=== PATIENT | female | born 1985 | race African-American/Black ===

== ENCOUNTER 2017-04-04 19:21 | Emergency (ER) | payer MEDICAID ==
[2017-04-04] MEDS ORDERED: LORAZEPAM 1 MG TABLET PO ONE (22:00)
--- NOTE | 2017-04-04 22:22 | ER Document Report ---
ED General - General Chief Complaint: Anxiety Stated Complaint: IRREGULAR HEART BEAT Time Seen by Provider: 04/04/17 21:59 Notes: Patient is a 31-year-old female with a past medical history of anxiety and gastroesophageal reflux disease who presents with sensation of palpitations and anxiety. Patient states this feels very similar to when she has had panic attacks in the past. Nothing improves or worsens her symptoms. She states that it started after she ate a large meal quickly and began to have reflux which is often a trigger for her anxiety attacks. She denies any chest pain, shortness of breath, pleuritic pain, history of DVT or pulmonary embolus, or use of estrogen. She denies any chest discomfort whatsoever at time of assessment. She states her main concern is that she is having an ongoing panic attack. She has not seen her primary care doctor regarding today's concerns. TRAVEL OUTSIDE OF THE [place] IN LAST 30 DAYS: No - Related Data Allergies/Adverse Reactions: No Known Allergies Allergy (Verified 05/19/16 13:35) Past Medical History - General Information source: Patient - Social History Smoking Status: Never Smoker Frequency of alcohol use: Rare Drug Abuse: None Lives with: Spouse/Significant other Family History: Reviewed & Not Pertinent Patient has suicidal ideation: No Patient has homicidal ideation: No Renal/ Medical History: Denies: Hx Peritoneal Dialysis Psychiatric Medical History: Reports: Hx Anxiety, Hx Depression - Immunizations Hx Diphtheria, Pertussis, Tetanus Vaccination: Yes Review of Systems - Review of Systems Notes: Constitutional: Negative for fever. HENT: Negative for sore throat. Eyes: Negative for visual changes. Cardiovascular: Negative for chest pain. Positive for palpitations Respiratory: Negative for shortness of breath. Gastrointestinal: Negative for abdominal pain, vomiting or diarrhea. Genitourinary: Negative for dysuria. Musculoskeletal: Negative for back pain. Skin: Negative for rash. Neurological: Negative for headaches, weakness or numbness. 10 point ROS negative except as marked above and in HPI. Physical Exam - Vital signs Vitals: Temp Pulse Resp BP Pulse Ox 98.4 F 126 H 16 147/95 H 99 04/04/17 20:06 04/04/17 20:06 04/04/17 20:06 04/04/17 20:06 04/04/17 20:06 Interpretation: Hypertensive, Tachycardic Notes: PHYSICAL EXAMINATION: GENERAL: Well-appearing, well-nourished and in no acute distress. HEAD: Atraumatic, normocephalic. EYES: Pupils equal round and reactive to light, extraocular movements intact, sclera anicteric, conjunctiva are normal. ENT: nares patent, oropharynx clear without exudates. Moist mucous membranes. NECK: Normal range of motion, supple without lymphadenopathy LUNGS: Breath sounds clear to auscultation bilaterally and equal. No wheezes rales or rhonchi. HEART: Regular tachycardia without murmurs ABDOMEN: Soft, nontender, normoactive bowel sounds. No guarding, no rebound. No masses appreciated. EXTREMITIES: Normal range of motion, no pitting or edema. No cyanosis. NEUROLOGICAL: No focal neurological deficits. Moves all extremities spontaneously and on command. PSYCH: Anxious. SKIN: Warm, Dry, normal turgor, no rashes or lesions noted. Course - Re-evaluation Re-evalutation: 04/04/17 22:21 Patient presents with history most consistent with an acute panic attack. The patient admits that these are symptoms identical to prior occasions of panic. There was a clear trigger for tonight's episode. Symptoms did resolve after receiving medical therapy here in the emergency department. Vitals otherwise within normal limits with the exception of initial tachycardia which has resolved. I do not suspect an acute pulmonary embolus, ACS, pneumothorax, or any other acute left threatening pathology based on history and exam. I do not believe any labs or imaging are indicated at this time. At this time will discharge with return precautions and follow-up recommendations. Verbal discharge instructions given a the bedside and opportunity for questions given. Medication warnings reviewed. Patient is in agreement with this plan and has verbalized understanding of return precautions and the need for primary care follow-up in the next 24-72 hours. - Vital Signs Vital signs: Temp Pulse Resp BP Pulse Ox 98.9 F 105 H 16 141/90 H 100 04/05/17 00:15 04/05/17 00:15 04/05/17 00:15 04/05/17 00:15 04/05/17 00:15 - EKG Interpretation by Me Additional EKG results interpreted by me: 04/05/17 03:54 Sinus tachycardia. Rate 126. No ST elevations or depressions. QTC is 412. Discharge - Discharge Clinical Impression: Anxiety, Sinus tachycardia Condition: Good Disposition: HOME, SELF-CARE Instructions: Anxiety ([facility]) Additional Instructions: You were seen today for anxiety and a fast heart rate. Please return if you develop recurrence of your symptoms, thoughts of wanting to harm yourself, or any other symptoms that are concerning to you. Follow-up with your primary doctor or mental health provider regarding today's ED visit.
[2017-04-04] MEDS ORDERED: MAG HYDROX/AL HYDROX/SIMETH SUSP 30 ML UDCUP PO ONE (23:57)
[2017-04-04] MEDS ORDERED: METOCLOPRAMIDE HCL ORAL SOLN 10 MG/10 ML UDCUP PO ONE (23:57)
[2017-04-04] MEDS ORDERED: LIDOCAINE 2% VISCOUS SOLN 20 ML UDCUP PO ONE (23:57)
[2017-04-05 00:16] VITALS: BP 141/90
--- NOTE | 2017-04-05 02:08 | EKG REPORT ---
SEVERITY:- BORDERLINE ECG - SINUS TACHYCARDIA PROBABLE LEFT ATRIAL ABNORMALITY : Confirmed by: Heather Salcido MD 05-Apr-2017 02:08:15
== END 2017-04-05 00:15 | disposition home or self-care (01) ==
LOC: ER 19:21
DX: F41.9 Anxiety disorder, unspecified (principal); R00.0 Tachycardia, unspecified; K21.9 Gastro-esophageal reflux disease without esophagitis
CPT/HCPCS: 93005; 99283; 93010; J3490 ×3

== ENCOUNTER 2017-08-08 21:40 | Emergency (ER) | payer MEDICAID, OTHER ==
--- NOTE | 2017-08-08 22:13 | EKG REPORT ---
SEVERITY:- BORDERLINE ECG - SINUS TACHYCARDIA PROBABLE LEFT ATRIAL ABNORMALITY BORDERLINE T ABNORMALITIES, ANT-LAT LEADS : Confirmed by: Yamini Marie 08-Aug-2017 22:12:48
[2017-08-08] MEDS ORDERED: LORAZEPAM 0.5 MG TABLET PO ONE (23:25)
--- NOTE | 2017-08-08 23:48 | ER Document Report ---
HPI - HPI Pain Level: Denies Notes: Patient is a 31-year-old female with a chronic history of recurrent anxiety and panic attacks who presents to the ED complaining of another 1 of her typical anxiety attacks. Patient states that she has been under a lot of stress and has been thinking about her grandmother who is in poor health as well as having decreased p.o. intake causing her acid reflux to flareup. Patient states that when her acid reflux flares up she starts developing anxiety. Patient does not take anything for her anxiety at this time. Patient states that she has been on multiple SSRIs in the past with minimal relief. Patient was last evaluated here in March for the same issue. Patient states that when her anxiety increases she does become nauseated as well. Patient states that otherwise she has been healthy without any recent illness. She is urinating normally and having normal bowel movements. She denies any drug allergies. Denies any SI/ HI. Patient states that she is ambulatory without any worsening symptoms or any development of chest pain. Denies any headache, fever, neck pain, changes in vision/speech/mentation/hearing, URI, sore throat, chest pain, palpitations, syncope, cough, shortness of breath, wheeze, dyspnea, vomiting/diarrhea, urinary retention, dysuria, hematuria, loss of control of bowel or bladder, numbness/tingling, muscle paralysis/weakness, or rash. - ROS Systems Reviewed and Negative: Yes All other systems reviewed and negative - REPRODUCTIVE Reproductive: DENIES: : Past Medical History - Social History Smoking Status: Never Smoker Family History: Reviewed & Not Pertinent Renal/ Medical History: Denies: Hx Peritoneal Dialysis Psychiatric Medical History: Reports: Hx Anxiety, Hx Depression - Immunizations Hx Diphtheria, Pertussis, Tetanus Vaccination: Yes Vertical Provider Document - CONSTITUTIONAL Agree With Documented VS: Yes Notes: PHYSICAL EXAMINATION: GENERAL: Well-appearing, well-nourished and in no acute distress. A&Ox4. Answers questions appropriately. Speaking in full sentences w/o difficulty. HEAD: Atraumatic, normocephalic. EYES: Pupils equal round and reactive to light, extraocular movements intact, sclera anicteric, conjunctiva are normal. ENT: Nares patent and without discharge. oropharynx clear without exudates. No tonsilar hypertrophy or erythema. Moist mucous membranes. NECK: Normal range of motion, supple without lymphadenopathy LUNGS: Breath sounds clear to auscultation bilaterally and equal. No wheezes rales or rhonchi. HEART: Regular rate and rhythm without murmurs, rubs, gallops. ABDOMEN: Soft, nontender, nondistended abdomen. No guarding, no rebound. No masses appreciated. Normal bowel sounds present. No CVA tenderness bilaterally. Musculoskeletal: FROM to passive/active. Strength 5+/5. Lesley neg. No calf erythema/swelling. Extremities: No cyanosis, clubbing, or edema b/l. Peripheral pulses 2+. Capillary refill less than 3 seconds. NEUROLOGICAL: MMSE intact. Cranial nerves grossly intact. Normal speech, normal gait. Normal sensory, motor exams PSYCH: a little anxious during exam SKIN: Warm, Dry, normal turgor, no rashes or lesions noted. - INFECTION CONTROL TRAVEL OUTSIDE OF THE [place] IN LAST 30 DAYS: No - RESPIRATORY O2 Sat by Pulse Oximetry: 100 Course - Re-evaluation Re-evalutation: 08/08/17 23:45 Patient is an afebrile, well-hydrated, 31-year-old female who presents to the ED with anxiety, suspect 1 of her typical panic attacks based on H&P today. Vitals are stable. PE is otherwise unremarkable for any focal neurological deficits. Upon review of patient's history, symptoms and presentation are consistent. Patient has a known trigger which started her anxiety (GERD/ emotions). As soon as a reviewed her EKG findings with her patient states that she felt much better and could feel her anxiety calming down. Her pulse on my exam was 98. No other labs or imaging warranted at this time based on H&P. Low suspicion for any ACS, PE, pneumothorax, pericarditis, dissection, respiratory compromise, severe dehydration, sepsis, meningitis, or other systemic emergent condition at this time. Patient is aware that her condition can change from initial presentation and she needs to monitor symptoms closely and seek medical attention for any acute changes. Patient was also given 0.5 mg of Ativan which helped as well. Patient received Ativan at her last visit which did well for her. I will not be sending her home with any benzodiazepines. I will send her home with a few tablets of hydroxyzine which she may use as needed. Recommend conservative measures otherwise for symptoms. Recheck with your PCM in 3-5 days. Consider consult with a psychologist/ psychiatrist. Return to the ED with any worsening/concerning symptoms otherwise as reviewed discharge. Patient is in agreement. - Vital Signs Vital signs: Temp Pulse Resp BP Pulse Ox 97.6 F 114 H 20 145/76 H 100 08/08/17 22:06 08/08/17 22:06 08/08/17 22:06 08/08/17 22:06 08/08/17 22:06 Discharge - Discharge Clinical Impression: Anxiety Condition: Stable Disposition: HOME, SELF-CARE Instructions: Anxiety ([facility]) Additional Instructions: Maintain adequate fluid intake Maintain a healthy diet Exercise as able Take medications as directed/needed Consider d-stressing activities such as yoga and meditation Recheck with your PCM in 3-5 days Consider consult with a psychologist/psychiatrist for further evaluation and management Return to the ED with any worsening symptoms and/or development of fever, headache, chest pain, palpitations, syncope, shortness of breath, trouble breathing, abdominal pain, n/v/d, blood in stool/urine, loss of control of bowel /bladder, urinary retention, muscle weakness/paralysis, numbness/tingling, suicidal/homicidal thoughts/ideations, or other worsening symptoms that are concerning to you. Prescriptions: Hydroxyzine HCl 50 mg PO TID PRN #15 tablet PRN Reason: Forms: Elevated Blood Pressure Referrals: [facility] [Provider Group] - Follow up as needed
[2017-08-09 00:45] VITALS: BP 132/91
== END 2017-08-09 00:36 | disposition home or self-care (01) ==
LOC: ER 21:40
DX: F41.9 Anxiety disorder, unspecified (principal); F41.0 Panic disorder [episodic paroxysmal anxiety]; R11.0 Nausea
CPT/HCPCS: 93005; 93010; 99283

== ENCOUNTER 2017-10-23 11:16 | Emergency (ER) | payer MEDICAID, OTHER ==
[2017-10-23] MEDS ORDERED: NORMAL SALINE 1000 ML 1,000 ML IV ONE (11:37)
[2017-10-23] MEDS ORDERED: DIPHENHYDRAMINE HCL 50 MG/ML VIAL IV ONE (11:37)
[2017-10-23] MEDS ORDERED: METOCLOPRAMIDE HCL INJ/PF 10 MG/2 ML SDV IV ONE (11:37)
--- NOTE | 2017-10-23 11:38 | ER Document Report ---
ED Medical Screen (RME) - General Chief Complaint: Headache Stated Complaint: HEADACHE, NAUSEA, WEAKNESS Time Seen by Provider: 10/23/17 11:33 Notes: RME DISCLOSURE I have seen this patient as part of a Rapid Medical Evaluation and, if applicable, placed any initially appropriate orders. The patient will be seen and fully evaluated, including a full history and physical exam, by a provider ( in Main ED or Fast Track) when a room becomes available. 32-year-old female here with complaints of generalized weakness nausea headache and feeling stressed out over the past few days. She does not know what could be causing the symptoms. She lost her grandmother 2 weeks ago. She does also endorse a history of electrolyte imbalance in the past requiring replacement. Denies any pain. TRAVEL OUTSIDE OF THE [place] IN LAST 30 DAYS: No - Related Data Allergies/Adverse Reactions: No Known Allergies Allergy (Verified 05/19/16 13:35) Past Medical History - Social History Chew tobacco use (# tins/day): No Frequency of alcohol use: Rare Drug Abuse: None Renal/ Medical History: Denies: Hx Peritoneal Dialysis Psychiatric Medical History: Reports: Hx Anxiety, Hx Depression - Immunizations Hx Diphtheria, Pertussis, Tetanus Vaccination: Yes Physical Exam - Vital signs Vitals: Temp Pulse Resp BP Pulse Ox 98.5 F 103 H 15 167/94 H 100 10/23/17 11:10/23/17 11:10/23/17 11:10/23/17 11:10/23/17 11:26 Course - Vital Signs Vital signs: Temp Pulse Resp BP Pulse Ox 98.5 F 103 H 15 167/94 H 100 10/23/17 11:10/23/17 11:10/23/17 11:10/23/17 11:10/23/17 11:26
[2017-10-23 12:18] LABS: ABSOLUTE EOSINOPHILS # (AUTO) 0.2 10^3/uL (0.0-0.6); ABSOLUTE LYMPHOCYTES (AUTO) 2.5 10^3/uL (0.5-4.7); ABSOLUTE MONOCYTES (AUTO) 0.7 10^3/uL (0.1-1.4); ABSOLUTE NEUT (AUTO) 4.6 10^3/uL (1.7-8.2); BASOPHILS % (AUTO) 0.4 % (0-2); EOSINOPHILS % (AUTO) 2.1 % (0-6); HEMATOCRIT 38.3 % (36.0-47.0); HEMOGLOBIN 12.9 g/dL (12.0-15.5); LYMPHOCYTES % (AUTO) 31.2 % (13-45); MEAN CORPUSCULAR HEMOGLOBIN 28.1 pg (27.0-33.4); MEAN CORPUSCULAR HGB CONC 33.8 g/dL (32.0-36.0); MEAN CORPUSCULAR VOLUME 83 fl (80-97); MONOCYTES % (AUTO) 9.2 % (3-13); PLATELET COUNT 339 10^3/uL (150-450); RED CELL DISTRIBUTION WIDTH 14.5 % (11.5-14.0); SEGMENTED NEUTROPHILS % (AUTO) 57.1 % (42-78); TOTAL CELLS COUNTED % (AUTO) 100 %
--- NOTE | 2017-10-23 12:18 | ER Document Report ---
ED General - General Chief Complaint: Headache Stated Complaint: HEADACHE, NAUSEA, WEAKNESS Time Seen by Provider: 10/23/17 11:33 Mode of Arrival: Ambulatory Information source: Patient TRAVEL OUTSIDE OF THE [place] IN LAST 30 DAYS: No - HPI Notes: 32-year-old female presents today with complaints of weakness, headache, anxious and was concerned about being . States she is worried about her left wrist is because she has not been eating as much. Symptoms been going on for the last 3 days. Patient reports she is under a lot of stress after recently losing a left one 2 weeks ago. Patient states on the way here she did start her menstrual cycle Patient does not take any medications for anxiety, does not see anyone to manage her anxiety. Eating and drinking has been decreased but she is still doing so. Denies homicidal suicidal ideation. Denies fevers, chills, chest pain,palpitations, shortness of breath, dyspnea, nausea, vomiting, diarrhea, abdominal pain, hematuria,blurred vision, double vision, loss of vision, speech changes, LH, dizziness, syncope, headaches, wheezing, ST, URI, neck pain, weakness, bowel or bladder dysfunction, saddle anesthesia, numbness or tingling in bilateral upper or lower extremities equally , muscle paralysis, weakness in bilateral upper or lower extremities equally or rash. Denies IV drug use. - Related Data Allergies/Adverse Reactions: No Known Allergies Allergy (Verified 05/19/16 13:35) Past Medical History - General Information source: Patient - Social History Smoking Status: Never Smoker Chew tobacco use (# tins/day): No Frequency of alcohol use: Rare Drug Abuse: None Family History: Reviewed & Not Pertinent Patient has suicidal ideation: No Patient has homicidal ideation: No Renal/ Medical History: Denies: Hx Peritoneal Dialysis Psychiatric Medical History: Reports: Hx Anxiety, Hx Depression - Immunizations Hx Diphtheria, Pertussis, Tetanus Vaccination: Yes Review of Systems - Review of Systems Constitutional: See HPI EENT: No symptoms reported Cardiovascular: No symptoms reported Respiratory: No symptoms reported Gastrointestinal: No symptoms reported Genitourinary: No symptoms reported Female Genitourinary: No symptoms reported Musculoskeletal: No symptoms reported Skin: No symptoms reported Hematologic/Lymphatic: No symptoms reported Neurological/Psychological: No symptoms reported Physical Exam - Vital signs Vitals: Temp Pulse Resp BP Pulse Ox 98.5 F 103 H 15 167/94 H 100 10/23/17 11:26 10/23/17 11:26 10/23/17 11:26 10/23/17 11:10/23/17 11:26 - Notes Notes: PHYSICAL EXAMINATION: GENERAL: Well-appearing, well-nourished and in no acute distress. HEAD: Atraumatic, normocephalic. EYES: Pupils equal round and reactive to light, extraocular movements intact, conjunctiva are normal. ENT: Nares patent, oropharynx clear without exudates. Moist mucous membranes. NECK: Normal range of motion, supple without lymphadenopathy LUNGS: Breath sounds clear to auscultation bilaterally and equal. No wheezes rales or rhonchi. HEART: Regular rate and rhythm without murmurs ABDOMEN: Soft, nontender, nondistended abdomen. No guarding, no rebound. No masses appreciated. Female : deferred Musculoskeletal: Normal range of motion, no pitting or edema. No cyanosis. NEUROLOGICAL: Cranial nerves grossly intact. Normal speech, normal gait. Normal sensory, motor exams PSYCH: Normal mood, normal affect, appears to be anxious. SKIN: Warm, Dry, normal turgor, no rashes or lesions noted. Course - Re-evaluation Re-evalutation: 10/23/17 13:36 Healthy 40-year-old female who is afebrile who is anxious due to recent loss of family member and felt weak overall and was concerned about her electrolytes has a cbc negative for leukocytosis or anemia. CMP negative for renal or hepatic dysfunction electrolytes without any disturbances. Urinalysis shows patient has a urinary tract infection. Patient states she feels remarkably better after medications were IV. Patient and report they are concerned about her anxiety, she does have intermittent panic attacks but has not had any recently. Is requesting to speak to somebody regarding her anxiety. Patient denies any homicidal or suicidal ideation. Consult put in for mental health valuation. Vitals stabilized on reevaluation. At this time will discharge with return precautions and follow-up recommendations. Verbal discharge instructions given a the bedside and opportunity for questions given. Medication warnings reviewed. Patient is in agreement with this plan and has verbalized understanding of return precautions and the need for primary care follow-up in the next 24-72 hours. Patient presents with symptoms consistent with an acute cystitis. Vitals wnl. No history of fever, flank pain, or constitution symptoms to suggest ascending infection at this time. Patient is well in appearance, tolerating oral intake without difficulty. No focal abdominal tenderness to suggest acute appendicitis , biliary pathology, acute pancreatitis, tubo-ovarian abscesses, or pelvic inflammatory disease. Patient will be started on antibiotics at this time. A culture has been sent. They will be discharged with return precautions and follow-up recommendations. 10/23/17 13:45 - Vital Signs Vital signs: Temp Pulse Resp BP Pulse Ox 98.5 F 103 H 15 167/94 H 100 10/23/17 11:26 10/23/17 11:26 10/23/17 11:26 10/23/17 11:26 10/23/17 11:26 - Laboratory Result Diagrams: 10/23/17 11:58 10/23/17 11:58 Laboratory results interpreted by me: 10/23/17 10/23/17 11:57 11:58 RDW 14.5 H Urine Blood MODERATE H Ur Leukocyte Esterase MODERATE H Discharge - Discharge Clinical Impression: Anxiety UTI (urinary tract infection) Qualifiers: Urinary tract infection type: acute cystitis Hematuria presence: with hematuria Qualified Code(s): N30.01 - Acute cystitis with hematuria Condition: Good Disposition: HOME, SELF-CARE Instructions: Nitrofurantoin ([facility]), Urinary Tract Infection ([facility]) Additional Instructions: Urinary Tract Infection Your evaluation indicates that you have a urinary tract infection. This is due to germs growing in the bladder. This is a common problem. This infection usually responds quickly to antibiotics. Your antibiotic should be taken exactly as prescribed. Drink plenty of fluids -- three to four quarts a day. Occasionally, a bladder anesthetic will be prescribed to help stop the feeling of urgency until the antibiotic has a chance to clear the infection. This may cause your urine to be dark orange. Certain urine infections require a culture. If the doctor obtained a culture, the results will be back in two days. You should call to see if a change in treatment is needed. A repeat urinalysis after you finish treatment is often recommended. The physician will let you know if further testing is required. Call the doctor if you develop fever, chills, flank pain, inability to urinate, or blood in the urine. Prescriptions: Nitrofurantoin Monohyd/M-Cryst [Macrobid 100 mg Capsule] 100 mg PO BID #14 capsule Forms: Return to Work Referrals: SHIRA NELSON MD [ACTIVE STAFF] - Follow up in 3-5 days PAULINA LOPEZ PSYD [ALLIED HEALTH PROFESSIONAL] - Follow up as needed
[2017-10-23 12:22] LABS: APPEARANCE,URINE SLIGHTLY-CLOUDY; BILIRUBIN,URINE NEGATIVE (NEGATIVE); COLOR,URINE STRAW; GLUCOSE, URINE NEGATIVE (NEGATIVE); KETONES,URINE NEGATIVE (NEGATIVE); LEUKOCYTE ESTERASE,URINE MODERATE (NEGATIVE); NITRITE,URINE NEGATIVE (NEGATIVE); PROTEIN,URINE NEGATIVE (NEGATIVE); URINE SPECIFIC GRAVITY 1.005; UROBILINOGEN,URINE NEGATIVE mg/dL (<2.0)
[2017-10-23 12:45] LABS: ANION GAP 13 (5-19); BLOOD UREA NITROGEN 7 mg/dL (7-20); CALCIUM 9.4 mg/dL (8.4-10.2); CARBON DIOXIDE 25 mmol/L (22-30); CHLORIDE 105 mmol/L (98-107); GLUCOSE 92 mg/dL (75-110); PHOSPHORUS 3.4 mg/dL (2.5-4.5); POTASSIUM 3.7 mmol/L (3.6-5.0); SODIUM 143.1 mmol/L (137-145)
[2017-10-23 13:33] VITALS: BP 125/78
--- NOTE | 2017-10-23 13:52 | PSYCHOLOGICAL NOTE ---
Psych Note - Psych Note Psych Note: Reason for consult: Anxiety After provider left room, pt became very tearful and sad about her grandmother. Pt states she has been trying to "keep it together for my kids but it's hard." Patient was discharged prior to clinician arrive to room. Patient still present however is declines speaking to clinician. Patient stated that she has lost a loved one recently and thinks her symptoms are coming from that. Patient disclosed she has received the resource list previously but would take one again because she does not know where it is. Patient thanked clinician and left.
== END 2017-10-23 13:38 | disposition home or self-care (01) ==
LOC: ER 11:16
DX: N30.01 Acute cystitis with hematuria (principal); F41.9 Anxiety disorder, unspecified; R51 Headache; R11.0 Nausea; R53.1 Weakness
CPT/HCPCS: 99285; 96361; 96374; 96375; 36415; 83735; 84100; 85025; 81025; 80048; 81001; J1200; J2765; J7030

== ENCOUNTER 2019-03-11 14:28 | Emergency (ER) | payer SELFPAY ==
--- NOTE | 2019-03-11 15:54 | ER Document Report ---
ED General - General Chief Complaint: Dizziness Stated Complaint: DIZZINESS Time Seen by Provider: 03/11/19 15:24 Primary Care Provider: NELL SMALLWOOD NP [NURSE PRACTITIONER] - Follow up in 1 week Mode of Arrival: Ambulatory Information source: Patient Notes: This 33-year-old female presents emergency department with episodes of dizziness this morning while she was driving. Patient also reports she felt very nauseated. Patient reports she ate very little for breakfast. She reports she drove herself to her 's work and felt very weak walking was dizzy. He had her drink water and she drank some Ensure and she felt better. Patient has had episodes of dizziness in the past. She denies past medical history of cardiac disease diabetes. Has history of anxiety and low blood sugar. She reports she felt nauseated but did not vomit. No trauma. No other symptoms such as fever or pain with void. Patient denies reports her has a vasectomy. Patient also reports she felt a pop in her left ear and possibly some sinus pressure. No dizziness at this time. TRAVEL OUTSIDE OF THE [place] IN LAST 30 DAYS: No - HPI Onset: This morning Onset/Duration: Sudden, Waxing and waning Quality of pain: No pain Severity: None Associated symptoms: Nausea Exacerbated by: Denies Relieved by: Denies Similar symptoms previously: No Recently seen / treated by doctor: No - Related Data Allergies/Adverse Reactions: No Known Allergies Allergy (Verified 03/11/19 14:30) Past Medical History - General Information source: Patient Last Menstrual Period: February 20, 2019 - Social History Smoking Status: Unknown if Ever Smoked Cigarette use (# per day): No Frequency of alcohol use: Occasional Drug Abuse: None Lives with: Family Family History: Reviewed & Not Pertinent Patient has suicidal ideation: No Patient has homicidal ideation: No Endocrine Medical History: Reports: Other - Hypoglycemia Renal/ Medical History: Denies: Hx Peritoneal Dialysis Psychiatric Medical History: Reports: Hx Anxiety, Hx Depression Surgical Hx: Negative - Immunizations Hx Diphtheria, Pertussis, Tetanus Vaccination: Yes Review of Systems - Review of Systems Notes: Review HPI for review of systems., All other systems negative Physical Exam - Vital signs Vitals: Temp Pulse Resp BP Pulse Ox 98.0 F 121 H 18 148/98 H 100 03/11/19 14:34 03/11/19 14:34 03/11/19 14:34 03/11/19 14:34 03/11/19 14:34 - Notes Notes: PHYSICAL EXAMINATION: GENERAL: Well-appearing and in no acute distress HEAD: Atraumatic, normocephalic. EYES: Pupils equal round and reactive to light, extraocular movements intact, sclera anicteric, conjunctiva are normal. ENT: nares patent, oropharynx clear without exudates. Moist mucous membranes. NECK: Normal range of motion, supple without lymphadenopathy LUNGS: CTAB and equal. No wheezes rales or rhonchi. HEART: Regular rate and rhythm without murmurs ABDOMEN: Soft, no tenderness. No guarding, no rebound EXTREMITIES: Normal range of motion, no pitting edema. No cyanosis. NEUROLOGICAL: Cranial nerves grossly intact. Normal sensory/motor exams. PSYCH: Normal mood, normal affect. SKIN: Warm, Dry, normal turgor, no rashes or lesions noted Course - Re-evaluation Re-evalutation: 03/11/19 15:53 This 33-year-old female presents emergency department with episodes of dizziness this morning. Patient reports she looked down and felt like if she was seeing waves. She also reports her legs got weak. Denies history of cardiac disease. Denies trauma. Patient reports she did not eat much this morning has a history of hypoglycemia. Accu-Chek was done was 95. Patient will be evaluated with labs EKG TSH. She was instructed on plan of care and she agreed. Patient is drinking p.o. fluids without distress. She reports she feels fine. EKG without ST elevation no T wave inversion labs unremarkable. slight increase in WBC. She was instructed on the importance of eating balanced meals. Instructed on importance of follow-up with her primary care provider for complete physical exam she verbalized understanding to all instructions. 03/11/19 16:20 03/11/19 16:20 MCV 81 fl (80-97) 03/11/19 16:20 MCH 27.2 pg (27.0-33.4) 03/11/19 16:20 MCHC 33.8 g/dL (32.0-36.0) 03/11/19 16:20 RDW 14.6 % (11.5-14.0) H 03/11/19 16:20 Seg Neutrophils % 78.5 % (42-78) H 03/11/19 16:20 Chloride 101 mmol/L (98-107) 03/11/19 16:20 Carbon Dioxide 24 mmol/L (22-30) 03/11/19 16:20 Anion Gap 13 (5-19) 03/11/19 16:20 Est GFR ( Amer) > 60 (>60) 03/11/19 16:20 Glucose 97 mg/dL (75-110) 03/11/19 16:20 Calcium 10.1 mg/dL (8.4-10.2) 03/11/19 16:20 Total Bilirubin 0.5 mg/dL (0.2-1.3) 03/11/19 16:20 AST 25 U/L (14-36) 03/11/19 16:20 Alkaline Phosphatase 119 U/L (38-126) 03/11/19 16:20 Total Protein 8.0 g/dL (6.3-8.2) 03/11/19 16:20 Albumin 4.6 g/dL (3.5-5.0) 03/11/19 16:20 TSH 1.49 uIU/mL (0.47-4.68) 03/11/19 16:20 Urine Color COLORLESS 03/11/19 16:22 Urine Appearance CLEAR 03/11/19 16:22 Urine pH 7.0 (5.0-9.0) 03/11/19 16:22 Ur Specific [place] 1.001 03/11/19 16:22 Urine Protein NEGATIVE mg/dL (NEGATIVE) 03/11/19 16:22 Urine Glucose (UA) NEGATIVE mg/dL (NEGATIVE) 03/11/19 16:22 Urine Ketones NEGATIVE mg/dL (NEGATIVE) 03/11/19 16:22 Urine Blood NEGATIVE (NEGATIVE) 03/11/19 16:22 Urine Nitrite NEGATIVE (NEGATIVE) 03/11/19 16:22 Ur Leukocyte Esterase TRACE (NEGATIVE) H 03/11/19 16:22 Ur Squamous Epith Cells MODERATE /HPF 03/11/19 16:22 03/11/19 19:52 - Vital Signs Vital signs: Temp Pulse Resp BP Pulse Ox 98.1 F 94 22 H 146/88 H 100 03/11/19 18:54 03/11/19 18:54 03/11/19 18:54 03/11/19 18:54 03/11/19 18:54 - Laboratory Result Diagrams: 03/11/19 16:20 03/11/19 16:20 Laboratory results interpreted by me: 03/11/19 03/11/19 16:20 16:22 WBC 13.4 H Hct 35.4 L RDW 14.6 H Absolute Neuts (auto) 10.6 H Seg Neutrophils % 78.5 H Ur Leukocyte Esterase TRACE H Discharge - Discharge Clinical Impression: Dizziness Condition: Stable Disposition: HOME, SELF-CARE Instructions: Dizziness ([facility]) Additional Instructions: *You have been evaluated for nausea dizziness *Please eat a balanced meal every day *Ensure adequate fluid intake as discussed to prevent dehydration *Follow up with a primary care provider within one week for recheck *Return to ED for worsening condition, changes, needs Monitor your blood pressure. Your blood pressure was elevated today. This may be because you were anxious, in pain or because you need medication. It is important to follow up with your primary care provider for full evaluation. Forms: Elevated Blood Pressure Referrals: NELL SMALLWOOD NP [NURSE PRACTITIONER] - Follow up in 1 week
[2019-03-11 16:54] LABS: ABSOLUTE LYMPHOCYTES (AUTO) 2.1 10^3/uL (0.5-4.7); ABSOLUTE MONOCYTES (AUTO) 0.8 10^3/uL (0.1-1.4); ABSOLUTE NEUT (AUTO) 10.6 10^3/uL (1.7-8.2); BASOPHILS % (AUTO) 0.3 % (0-2); EOSINOPHILS % (AUTO) 0.1 % (0-6); HEMATOCRIT 35.4 % (36.0-47.0); LYMPHOCYTES % (AUTO) 15.4 % (13-45); MEAN CORPUSCULAR HEMOGLOBIN 27.2 pg (27.0-33.4); MEAN CORPUSCULAR HGB CONC 33.8 g/dL (32.0-36.0); MEAN CORPUSCULAR VOLUME 81 fl (80-97); MONOCYTES % (AUTO) 5.7 % (3-13); PLATELET COUNT 344 10^3/uL (150-450); RED BLOOD COUNT 4.39 10^6/uL (3.72-5.28); RED CELL DISTRIBUTION WIDTH 14.6 % (11.5-14.0); SEGMENTED NEUTROPHILS % (AUTO) 78.5 % (42-78); TOTAL CELLS COUNTED % (AUTO) 100 %; WHITE BLOOD COUNT 13.4 10^3/uL (4.0-10.5)
[2019-03-11 17:04] LABS: BLOOD UREA NITROGEN 10 mg/dL (7-20); CALCIUM 10.1 mg/dL (8.4-10.2); GLUCOSE 97 mg/dL (75-110)
[2019-03-11 17:05] LABS: ALBUMIN 4.6 g/dL (3.5-5.0); ALKALINE PHOSPHATASE 119 U/L (38-126); ANION GAP 13 (5-19); ASPARTATE AMINO TRANSFERASE 25 U/L (14-36); BILIRUBIN,DIRECT 0.1 mg/dL (0.0-0.4); BILIRUBIN,TOTAL 0.5 mg/dL (0.2-1.3); CARBON DIOXIDE 24 mmol/L (22-30); CHLORIDE 101 mmol/L (98-107); POTASSIUM 3.8 mmol/L (3.6-5.0)
[2019-03-11 18:09] LABS: APPEARANCE,URINE CLEAR; BILIRUBIN,URINE NEGATIVE (NEGATIVE); COLOR,URINE COLORLESS; GLUCOSE, URINE NEGATIVE (NEGATIVE); KETONES,URINE NEGATIVE (NEGATIVE); LEUKOCYTE ESTERASE,URINE TRACE (NEGATIVE); NITRITE,URINE NEGATIVE (NEGATIVE); PROTEIN,URINE NEGATIVE (NEGATIVE); URINE SPECIFIC GRAVITY 1.001; UROBILINOGEN,URINE NEGATIVE mg/dL (<2.0)
[2019-03-11 18:21] LABS: ADD MANUAL MICROSCOPIC YES
[2019-03-11 18:22] LABS: BACTERIA,URINE TRACE /HPF
[2019-03-11 18:57] VITALS: BP 146/88
--- NOTE | 2019-03-12 08:54 | EKG REPORT ---
SEVERITY:- BORDERLINE ECG - SINUS TACHYCARDIA PROBABLE LEFT ATRIAL ABNORMALITY : Confirmed by: Heather Salcido MD 12-Mar-2019 08:53:27
== END 2019-03-11 19:03 | disposition home or self-care (01) ==
LOC: ER 14:28
DX: R42 Dizziness and giddiness (principal); R11.0 Nausea
CPT/HCPCS: 36415; 80053; 81001; 81025; 82962; 84443; 85025; 93005; 93010; 99284

== ENCOUNTER 2020-02-16 15:14 | Emergency (ER) | payer SELFPAY ==
[2020-02-16] MEDS ORDERED: NORMAL SALINE 1000 ML 1,000 ML IV ONE ×2 (17:31→20:30)
[2020-02-16] MEDS ORDERED: MAG HYDROX/AL HYDROX/SIMETH SUSP 30 ML UDCUP PO ONE ×2 (17:31→20:30)
[2020-02-16] MEDS ORDERED: LIDOCAINE 2% VISCOUS SOLN 15 ML UDCUP PO ONE ×2 (17:31→20:30)
[2020-02-16] MEDS ORDERED: SIMETHICONE 80 MG TAB.CHEW PO ONE ×2 (17:31→20:30)
--- NOTE | 2020-02-16 17:33 | ER Document Report ---
ED GI/ - General Chief Complaint: Epigastric Pain Stated Complaint: ABDOMINAL PAIN Time Seen by Provider: 02/16/20 17:28 Primary Care Provider: YARELIS BACA MD [NO LOCAL MD] - Follow up as needed OLI BO MD [ACTIVE STAFF] - Follow up as needed LEXIE RODRIGUEZ FNP [NURSE PRACTITIONER] - Follow up as needed Mode of Arrival: Ambulatory Information source: Patient Notes: Presents complaining of esophageal spasms for the past week. Patient states she has been burping more. Patient describes a discomfort in her chest and she is worried about possible blood clot. Patient denies any chest pain, shortness of breath or cough. Patient does report some nausea. Patient also does report feeling anxious which she feels is causing her to have a fast heart rate right now. Patient states that she feels as though her anxiety makes his symptoms worse. TRAVEL OUTSIDE OF THE [place] IN LAST 30 DAYS: No - HPI Patient complains to provider of: Other - Nausea. No: Vomiting Onset: Last week Location: Chest pain Associated symptoms: Nausea, Other - Frequent belching. denies: Loss of appetite, Urinary hesitancy, Urinary frequency, Urinary retention, Urinary urgency, Vomiting Exacerbated by: Denies Relieved by: Denies Similar symptoms previously: Yes Recently seen / treated by doctor: No - Related Data Allergies/Adverse Reactions: No Known Allergies Allergy (Verified 03/11/19 14:30) Home Medications: omeprazole Past Medical History - General Information source: Patient - Social History Smoking Status: Never Smoker Chew tobacco use (# tins/day): No Frequency of alcohol use: Occasional Drug Abuse: None Occupation: None Lives with: Family Family History: Reviewed & Not Pertinent Patient has homicidal ideation: No - Past Medical History Cardiac Medical History: Denies: Hx Coronary Artery Disease, Hx Hypertension Renal/ Medical History: Denies: Hx Peritoneal Dialysis GI Medical History: Reports: Hx Gastroesophageal Reflux Disease Psychiatric Medical History: Reports: Hx Anxiety, Hx Depression Surgical Hx: Negative - Immunizations Hx Diphtheria, Pertussis, Tetanus Vaccination: Yes Review of Systems - Review of Systems Constitutional: No symptoms reported. denies: Fever EENT: No symptoms reported Cardiovascular: Palpitations. denies: Chest pain Respiratory: No symptoms reported. denies: Cough, Short of breath Gastrointestinal: Nausea, Other - Frequent belching, esophageal spasms. denies: Vomiting Genitourinary: No symptoms reported Female Genitourinary: No symptoms reported Musculoskeletal: No symptoms reported. denies: Back pain Skin: No symptoms reported Hematologic/Lymphatic: No symptoms reported Neurological/Psychological: No symptoms reported Physical Exam - Vital signs Vitals: Temp Pulse Resp BP Pulse Ox 98.7 F 121 H 18 140/91 H 100 02/16/20 15:52 02/16/20 15:52 02/16/20 15:52 02/16/20 15:52 02/16/20 15:52 - General General appearance: Alert, Anxious In distress: None - HEENT Head: Normocephalic, Atraumatic Eyes: Normal Conjunctiva: Normal Nasal: Normal Mouth/Lips: Normal Mucous membranes: Normal - Respiratory Respiratory status: No respiratory distress Chest status: Nontender. No: Pain on movement, Pain with cough Breath sounds: Normal. No: Nonproductive cough, Productive cough, Rales, Rhonchi, Stridor, Wheezing Chest palpation: Normal. No: Tender - Cardiovascular Rhythm: Tachycardia Heart sounds: S1 appreciated, S2 appreciated Murmur: No - Abdominal Inspection: Normal Distension: No distension Bowel sounds: Normal Tenderness: Nontender Organomegaly: No organomegaly - Back Back: Normal, Nontender. No: CVA tenderness - Extremities General upper extremity: Normal inspection, Nontender, Normal ROM General lower extremity: Normal inspection, Nontender, Normal ROM - Neurological Neuro grossly intact: Yes Cognition: Normal Pickett Coma Scale Eye Opening: Spontaneous Tara Coma Scale Verbal: Oriented Pickett Coma Scale Motor: Obeys Commands Pickett Coma Scale Total: 15 - Psychological Associated symptoms: Normal affect, Normal mood - Skin Skin Temperature: Warm Skin Moisture: Dry Skin Color: Normal Course - Re-evaluation Re-evalutation: 02/16/20 21:19 Patient reports that symptoms have resolved after receiving the medication. Patient states that the esophagus discomfort was improved after the GI cocktail and she does not feel as anxious after receiving the anxiety medication. Presentation of chest pain in an otherwise well appearing patient. Low clinical suspicion for ACS given clinical history, exam, EKG without ST elevations or depressions, and negative initial troponin. HEART score less than or equal to 3. PE also seems unlikely given clinical history, absence of dyspnea, and lack of elevated d-dimer. CXR without evidence of pneumothorax or pneumonia. No widened mediastinum. Suspect likely GERD, esophagitis with anxiety. Chest pain in a patient without evidence of cardiac or other serious etiology on workup today. I discussed with patient that, based on their age, risk factors and emergency department testing today, the likelihood that their symptoms are related to a heart attack is very low. The patient demonstrates decision making capacity and has verbalized an understanding of these risks to me. Based on this, the patient has chosen to follow-up as an outpatient. Usual chest pain return precautions reviewed. The patient states understanding and agreement with this plan. - Vital Signs Vital signs: Temp Pulse Resp BP Pulse Ox 98.5 F 102 H 18 138/87 H 100 02/16/20 21:13 02/16/20 21:13 02/16/20 15:52 02/16/20 21:13 02/16/20 21:13 - Laboratory Result Diagrams: 02/16/20 18:41 02/16/20 18:41 Laboratory results interpreted by me: 02/16/20 02/16/20 18:41 18:41 WBC 10.7 H RDW 15.4 H Total Protein 8.3 H Labs- All tests 24 hr 02/16/20 02/16/20 02/16/20 18:41 18:41 18:41 WBC 10.7 H RBC 4.56 Hgb 12.5 Hct 36.9 MCV 81 MCH 27.5 MCHC 34.0 RDW 15.4 H Plt Count 344 Lymph % (Auto) 19.4 Barren % (Auto) 5.8 Eos % (Auto) 0.2 Baso % (Auto) 0.3 Absolute Neuts (auto) 8.0 Absolute Lymphs (auto) 2.1 Absolute Monos (auto) 0.6 Absolute Eos (auto) 0.0 Absolute Basos (auto) 0.0 Seg Neutrophils % 74.3 D-Dimer 0.46 Sodium 139.2 Potassium 3.7 Chloride 104 Carbon Dioxide 23 Anion Gap 12 BUN 12 Creatinine 0.66 Est GFR ( Amer) > 60 Est GFR (MDRD) Non-Af > 60 Glucose 110 Calcium 9.4 Magnesium 2.2 Total Bilirubin 0.8 Direct Bilirubin 0.0 Neonat Total Bilirubin Not Reportable Neonat Direct Bilirubin Not Reportable Neonat Indirect Bili Not Reportable AST 31 ALT 24 Alkaline Phosphatase 120 Troponin I Total Protein 8.3 H Albumin 4.7 Lipase 76.6 Serum HCG, Qual 02/16/20 02/16/20 18:41 18:41 WBC RBC Hgb Hct MCV MCH MCHC RDW Plt Count Lymph % (Auto) Barren % (Auto) Eos % (Auto) Baso % (Auto) Absolute Neuts (auto) Absolute Lymphs (auto) Absolute Monos (auto) Absolute Eos (auto) Absolute Basos (auto) Seg Neutrophils % D-Dimer Sodium Potassium Chloride Carbon Dioxide Anion Gap BUN Creatinine Est GFR ( Amer) Est GFR (MDRD) Non-Af Glucose Calcium Magnesium Total Bilirubin Direct Bilirubin Neonat Total Bilirubin Neonat Direct Bilirubin Neonat Indirect Bili AST ALT Alkaline Phosphatase Troponin I < 0.012 Total Protein Albumin Lipase Serum HCG, Qual NEGATIVE - Diagnostic Test Radiology reviewed: Reports reviewed - EKG Interpretation by Me EKG shows normal: Sinus rhythm Rate: Tachycardia Additional EKG results interpreted by me: 02/16/20 19:27 Sinus tachycardia with a rate of 114, QTc 430, no acute ischemia Discharge - Discharge Clinical Impression: Chest discomfort, Anxiety GERD (gastroesophageal reflux disease) Qualifiers: Esophagitis presence: esophagitis presence not specified Qualified Code(s): K21.9 - Gastro-esophageal reflux disease without esophagitis Condition: Stable Disposition: HOME, SELF-CARE Instructions: Anxiety ([facility]), Chest Pain of Unclear Cause ([facility]), Esophagitis ([facility]), Reflux Disease (GERD) ([facility]) Additional Instructions: Return immediately for any new or worsening symptoms Followup with your primary care provider, call tomorrow to make a followup appointment Avoid carbonated beverages and alcohol Prescriptions: Sucralfate [Carafate 1 gm Tablet] 1 gm PO ACHS #40 tablet Simethicone [Mylicon 80 mg Chewable Tablet] 80 mg PO QIDP PRN #60 tab.chew PRN Reason: Ondansetron [Zofran Odt 4 mg Tablet] 1 tab PO Q6H PRN #15 tab.rapdis PRN Reason: Referrals: LEXIE RODRIGUEZ FNP [NURSE PRACTITIONER] - Follow up as needed YARELIS BACA MD [NO LOCAL MD] - Follow up as needed OLI BO MD [ACTIVE STAFF] - Follow up as needed
--- NOTE | 2020-02-16 18:13 | RADIOLOGY REPORT (SQ) ---
EXAM DESCRIPTION: CHEST SINGLE VIEW IMAGES COMPLETED DATE/TIME: 02/16/2020 6:00 pm REASON FOR STUDY: chest discomfort COMPARISON: None. EXAM PARAMETERS: NUMBER OF VIEWS: One view. TECHNIQUE: Single frontal radiographic view of the chest acquired. RADIATION DOSE: NA LIMITATIONS: None. FINDINGS: LUNGS AND PLEURA: No opacities, masses or pneumothorax. No pleural effusion. MEDIASTINUM AND HILAR STRUCTURES: No masses. Contour normal. HEART AND VASCULAR STRUCTURES: Heart normal in size. Normal vasculature. BONES: No acute findings. HARDWARE: None in the chest. OTHER: No other significant finding. IMPRESSION: NO ACUTE RADIOGRAPHIC FINDING IN THE CHEST. TECHNICAL DOCUMENTATION: JOB ID: [id number] 2010 [employer]- All Rights Reserved Reading location - IP/workstation name: [email or web address]
[2020-02-16 18:49] LABS: ABSOLUTE LYMPHOCYTES (AUTO) 2.1 10^3/uL (0.5-4.7); ABSOLUTE MONOCYTES (AUTO) 0.6 10^3/uL (0.1-1.4); BASOPHILS % (AUTO) 0.3 % (0-2); EOSINOPHILS % (AUTO) 0.2 % (0-6); HEMATOCRIT 36.9 % (36.0-47.0); HEMOGLOBIN 12.5 g/dL (12.0-15.5); LYMPHOCYTES % (AUTO) 19.4 % (13-45); MEAN CORPUSCULAR HEMOGLOBIN 27.5 pg (27.0-33.4); MEAN CORPUSCULAR VOLUME 81 fl (80-97); MONOCYTES % (AUTO) 5.8 % (3-13); PLATELET COUNT 344 10^3/uL (150-450); RED BLOOD COUNT 4.56 10^6/uL (3.72-5.28); RED CELL DISTRIBUTION WIDTH 15.4 % (11.5-14.0); SEGMENTED NEUTROPHILS % (AUTO) 74.3 % (42-78); TOTAL CELLS COUNTED % (AUTO) 100 %; WHITE BLOOD COUNT 10.7 10^3/uL (4.0-10.5)
[2020-02-16 19:09] LABS: ALBUMIN 4.7 g/dL (3.5-5.0); ALKALINE PHOSPHATASE 120 U/L (38-126); ANION GAP 12 (5-19); ASPARTATE AMINO TRANSFERASE 31 U/L (14-36); BILIRUBIN,TOTAL 0.8 mg/dL (0.2-1.3); BLOOD UREA NITROGEN 12 mg/dL (7-20); CALCIUM 9.4 mg/dL (8.4-10.2); CARBON DIOXIDE 23 mmol/L (22-30); CHLORIDE 104 mmol/L (98-107); GLUCOSE 110 mg/dL (75-110); POTASSIUM 3.7 mmol/L (3.6-5.0); TOTAL PROTEIN 8.3 g/dL (6.3-8.2)
[2020-02-16] MEDS ORDERED: LORAZEPAM INJ 2 MG/1 ML VIAL IV ONE ×2 (19:39→20:30)
[2020-02-16 21:19] VITALS: BP 138/87
--- NOTE | 2020-02-17 09:51 | EKG REPORT ---
SEVERITY:- BORDERLINE ECG - SINUS TACHYCARDIA PROBABLE LEFT ATRIAL ABNORMALITY : Confirmed by: Yamini Marie 17-Feb-2020 09:51:21
== END 2020-02-16 21:45 | disposition home or self-care (01) ==
LOC: ER 15:14
DX: K21.9 Gastro-esophageal reflux disease without esophagitis (principal); R07.9 Chest pain, unspecified; F41.9 Anxiety disorder, unspecified; R14.2 Eructation; R10.13 Epigastric pain; R11.0 Nausea
CPT/HCPCS: 93005; 99285; 96361; 96374; 36415; 83690; 83735; 84703; 85025; 80053; 84484; 85379; 71045; 93010; J3490; J2060; J7030

== ENCOUNTER 2020-02-21 18:34 | Emergency (ER) | payer MEDICAID ==
--- NOTE | 2020-02-21 19:01 | ER Document Report ---
ED Medical Screen (RME) - General Chief Complaint: Epigastric Pain Stated Complaint: EPIGASTRIC PAIN Notes: Patient is a 34-year-old -Stateless female with a history of GERD who was seen here about 2 weeks ago for similar complaints she reports today with a complaint of epigastric abdominal discomfort with radiation into the chest and throat. States that she has GERD and she takes Pepcid for this daily. She states that she is noticed certain food items causing increased gassiness. She states it feels like air bubbles are coming up into her upper esophagus and bursting. She was prescribed Carafate, Zofran and simethicone. She took the Zofran but was not sure if she could take the Carafate and the simethicone with her Pepcid so she did not take the medicines as prescribed. She reports she is try to get in with a primary doctor but given the circumstances with the COVID 19 pandemic she has been unable to establish care. She returns here today with continual concerns surrounding these ongoing problems. I have treated and performed a rapid initial assessment of this patient. A comprehensive ED assessment and evaluation of the patient, analysis of test results and completion of medical decision making process will be conducted by additional ED providers. PHYSICAL EXAMINATION: GENERAL: Well-appearing, well-nourished and in no acute distress. A&Ox4. Answers questions appropriately. TRAVEL OUTSIDE OF THE [place] IN LAST 30 DAYS: No - Related Data Allergies/Adverse Reactions: No Known Allergies Allergy (Verified 03/11/19 14:30) Past Medical History - Social History Frequency of alcohol use: None Drug Abuse: None - Past Medical History Cardiac Medical History: Denies: Hx Coronary Artery Disease, Hx Hypertension Renal/ Medical History: Denies: Hx Peritoneal Dialysis GI Medical History: Reports: Hx Gastroesophageal Reflux Disease Psychiatric Medical History: Reports: Hx Anxiety, Hx Depression - Immunizations Hx Diphtheria, Pertussis, Tetanus Vaccination: Yes Physical Exam - Vital signs Vitals: Temp Pulse Resp BP Pulse Ox 98.3 F 110 H 20 140/85 H 100 02/21/20 18:40 02/21/20 18:40 02/21/20 18:40 02/21/20 18:40 02/21/20 18:40 Course - Vital Signs Vital signs: Temp Pulse Resp BP Pulse Ox 98.3 F 110 H 20 140/85 H 100 02/21/20 18:40 02/21/20 18:40 02/21/20 18:40 02/21/20 18:40 02/21/20 18:40
[2020-02-21 19:32] LABS: ABSOLUTE BASOPHILS # (AUTO) 0.1 10^3/uL (0.0-0.2); ABSOLUTE EOSINOPHILS # (AUTO) 0.1 10^3/uL (0.0-0.6); ABSOLUTE LYMPHOCYTES (AUTO) 2.3 10^3/uL (0.5-4.7); ABSOLUTE MONOCYTES (AUTO) 0.7 10^3/uL (0.1-1.4); ABSOLUTE NEUT (AUTO) 6.4 10^3/uL (1.7-8.2); BASOPHILS % (AUTO) 0.8 % (0-2); EOSINOPHILS % (AUTO) 1.1 % (0-6); HEMATOCRIT 37.8 % (36.0-47.0); HEMOGLOBIN 12.5 g/dL (12.0-15.5); LYMPHOCYTES % (AUTO) 24.3 % (13-45); MEAN CORPUSCULAR VOLUME 82 fl (80-97); PLATELET COUNT 342 10^3/uL (150-450); RED BLOOD COUNT 4.62 10^6/uL (3.72-5.28); RED CELL DISTRIBUTION WIDTH 15.1 % (11.5-14.0); SEGMENTED NEUTROPHILS % (AUTO) 66.8 % (42-78); TOTAL CELLS COUNTED % (AUTO) 100 %; WHITE BLOOD COUNT 9.6 10^3/uL (4.0-10.5)
[2020-02-21 19:45] LABS: APPEARANCE,URINE SLIGHTLY-CLOUDY; BILIRUBIN,URINE NEGATIVE (NEGATIVE); COLOR,URINE YELLOW; GLUCOSE, URINE NEGATIVE (NEGATIVE); KETONES,URINE NEGATIVE (NEGATIVE); PROTEIN,URINE NEGATIVE (NEGATIVE); UROBILINOGEN,URINE NEGATIVE mg/dL (<2.0)
[2020-02-21 19:50] LABS: ALBUMIN 4.7 g/dL (3.5-5.0); ALKALINE PHOSPHATASE 115 U/L (38-126); ANION GAP 13 (5-19); ASPARTATE AMINO TRANSFERASE 24 U/L (14-36); BILIRUBIN,DIRECT 0.2 mg/dL (0.0-0.4); BILIRUBIN,TOTAL 0.8 mg/dL (0.2-1.3); BLOOD UREA NITROGEN 8 mg/dL (7-20); CALCIUM 9.7 mg/dL (8.4-10.2); CARBON DIOXIDE 22 mmol/L (22-30); CHLORIDE 102 mmol/L (98-107); GLUCOSE 128 mg/dL (75-110); POTASSIUM 3.8 mmol/L (3.6-5.0); TOTAL PROTEIN 7.9 g/dL (6.3-8.2)
--- NOTE | 2020-02-22 04:20 | ER Document Report ---
ED GI/ - General Chief Complaint: Epigastric Pain Stated Complaint: EPIGASTRIC PAIN Time Seen by Provider: 02/22/20 04:05 Primary Care Provider: [facility] [Provider Group] - Follow up as needed Notes: Patient is a 34-year-old female that comes emergency department for chief complaint of 2 weeks of upper abdominal discomfort, nausea, frequent belching, discomfort that radiates up her esophagus to her throat. She states that almost anything she eats makes this worse. She was here recently for the same and had a full work-up including cardiac work-up but has not had an ultrasound. She states she did a telemedicine consult and they placed her on omeprazole, she is taking Pepcid at home, she was prescribed Carafate, she states the only thing she is taking is Pepcid because she is concerned that she might have trouble if she combines all of them. She denies smoking, reports some alcohol use in cluding wine, reports some caffeine use, denies prescribed medications, denies any surgeries. She denies . TRAVEL OUTSIDE OF THE [place] IN LAST 30 DAYS: No - Related Data Allergies/Adverse Reactions: No Known Allergies Allergy (Verified 03/11/19 14:30) Past Medical History - General Information source: Patient - Social History Smoking Status: Never Smoker Frequency of alcohol use: None Drug Abuse: None Lives with: Family Family History: Reviewed & Not Pertinent - Past Medical History Cardiac Medical History: Denies: Hx Coronary Artery Disease, Hx Hypertension Renal/ Medical History: Denies: Hx Peritoneal Dialysis GI Medical History: Reports: Hx Gastroesophageal Reflux Disease Psychiatric Medical History: Reports: Hx Anxiety, Hx Depression - Immunizations Hx Diphtheria, Pertussis, Tetanus Vaccination: Yes Review of Systems - Review of Systems Constitutional: No symptoms reported EENT: No symptoms reported Cardiovascular: No symptoms reported Respiratory: No symptoms reported Gastrointestinal: See HPI Genitourinary: No symptoms reported Female Genitourinary: No symptoms reported Musculoskeletal: No symptoms reported Skin: No symptoms reported Hematologic/Lymphatic: No symptoms reported Neurological/Psychological: No symptoms reported Physical Exam - Vital signs Vitals: Temp Pulse Resp BP Pulse Ox 98.3 F 110 H 20 140/85 H 100 02/21/20 18:40 02/21/20 18:40 02/21/20 18:40 02/21/20 18:40 02/21/20 18:40 - Notes Notes: GENERAL: Alert, interacts well. No acute distress. HEAD: Normocephalic, atraumatic. EYES: Pupils equal, round, and reactive to light. Extraocular movements intact. ENT: Oral mucosa moist, tongue midline. Oropharynx unremarkable. Airway patent. LUNGS: Clear to auscultation bilaterally, no wheezes, rales, or rhonchi. No respiratory distress. Non-tender chest wall. HEART: Regular rate and rhythm. No murmur ABDOMEN: Soft, non-tender. Non-distended. No guarding, rigidity, or rebound tenderness. EXTREMITIES: Moves all 4 extremities spontaneously. No edema, normal radial and dorsalis pedis pulses bilaterally. No cyanosis. BACK: no cervical, thoracic, lumbar midline tenderness. No saddle anesthesia, normal distal neurovascular exam. Moves all extremities in full range of motion. NEUROLOGICAL: Alert and oriented x3. Normal speech. Cranial nerves II through XII grossly intact. Strength 5/5 in all extremities. PSYCH: Slightly labile and easily becomes very emotional and almost tearful. However she is very easily reassured SKIN: Warm, dry, normal turgor. No rashes or lesions noted. Course - Re-evaluation Re-evalutation: CBC, chemistry, lipase, urinalysis unremarkable except for a few white blood cells in the urine. Patient has no dysuria or any urinary symptoms, culture placed. test is negative. Patient reporting epigastric tenderness although on my exam I did not appreciate any epigastric tenderness, patient has no signs of distress. Ultrasound does show gallstones which are large, however there is no pericholecystic fluid, wall thickening, or obstruction changes. This is reported as a positive Salcido sign but I reevaluated patient and she does not have any abdominal tenderness to my exam. Very low suspicion of acute abdomen. Discussed details with patient at length. She will take her GERD medications, follow up with the Surgical clinic, and I discussed return pre cautions in detail. Patient states appreciation and agreement. Stable, well- appearing, no complaints at time of discharge. - Vital Signs Vital signs: Temp Pulse Resp BP Pulse Ox 98.5 F 87 16 138/79 H 100 02/22/20 06:33 02/22/20 06:33 02/22/20 06:33 02/22/20 06:33 02/22/20 06:33 - Laboratory Result Diagrams: 02/21/20 19:19 02/21/20 19:19 Laboratory results interpreted by me: 02/21/20 02/21/20 02/21/20 19:19 19:19 19:19 RDW 15.1 H Sodium 136.9 L Glucose 128 H Urine Blood LARGE H Leukocyte Esterase Rfl SMALL H Discharge - Discharge Clinical Impression: Upper abdominal pain GERD (gastroesophageal reflux disease) Qualifiers: Esophagitis presence: esophagitis presence not specified Qualified Code(s): K21.9 - Gastro-esophageal reflux disease without esophagitis Cholelithiasis Qualifiers: Cholelithiasis location: gallbladder Cholecystitis presence: without cholecystitis Biliary obstruction: without biliary obstruction Qualified Code(s): K80.20 - Calculus of gallbladder without cholecystitis without obstruction Condition: Stable Disposition: HOME, SELF-CARE Additional Instructions: You do have gallstones. This may be contributing to your symptoms. You can also take the Carafate, Pepcid, and omeprazole together if needed. Take Tylenol if needed for pain. Follow-up with the surgical clinic for additional management, call the listed referral for your follow-up. Return if you worsen including severe pain, fever, vomiting, or any other concerning or worsening symptoms. Referrals: [facility] [Provider Group] - Follow up as needed
--- NOTE | 2020-02-22 05:43 | RADIOLOGY REPORT (SQ) ---
CLINICAL HISTORY: epigastric pain, nausea COMPARISON: None. TECHNIQUE: US ABDOMEN LIMITED 02/22/2020 4:16 AM CDT FINDINGS: Liver is normal in echotexture. Hepatic veins are patent. Gallbladder contains at least one large gallstone. Common bile duct measures IMPRESSION: No definite acute findings.
[2020-02-22 06:37] VITALS: BP 138/79
== END 2020-02-22 06:33 | disposition home or self-care (01) ==
LOC: ER 18:34
DX: K80.20 Calculus of gallbladder without cholecystitis without obstruction (principal); K21.9 Gastro-esophageal reflux disease without esophagitis; R10.10 Upper abdominal pain, unspecified; R10.13 Epigastric pain; R11.0 Nausea; R14.2 Eructation
CPT/HCPCS: 36415; 76705; 80053; 81001; 81025; 83690; 85025; 99284